=== PATIENT | male | born 1950 | race Caucasian/White ===

== ENCOUNTER 2016-08-29 22:28 | Inpatient (IN) | payer MEDICAID ==
--- NOTE | ~2016-08-29 | A ---
[facility] Nutrition Therapy DATE: 08/31/16 Patient: RONNIE MARROQUIN Physician: HEBER Address: [address] [place] [address] Room/Bed: [address], Zip: [place] [phone] Admit Date: 08/30/16 Date of : [birth year] Height: Weight: 368 167 NUTRITIONAL ASSESSMENT: REASON: CONSULT RE: DIET EDUCATION PT IS 65 Y.O. MALE ADMITTED FOR RESP FAILURE HT: 5'11", WT: 368# (167 KG), BMI: 51.3 RD PROVIDED WRITTEN AND VERBAL CC DIET EDUCATION. RD PROVIDED LIST OF FOODS TO AVOID/LIMIT AND FOODS TO EAT MORE OFTEN. RD EMPHASIZED IMPORTANCE OF FOLLOWING CONSISTENT MEAL SCHEDULE W/BALANCED MEALS WELL LIMIT SUGAR-SWEETENED BEVERAGES. PT STATES HE IS RECENTLY RETIRED, DOES NOT FOLLOW ANY SPECIFIC DIET PLAN. 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 THIS RD ENCOURAGED PT TO CUT BACK ON BREAD AND PROVIDED HEALTHIER ALTERNATIVES. PT VERBALIZED UNDERSTANDING OF THE TOPIC, REPORTED NO DIET QUESTIONS AT THIS TIME. RD TO REMAIN AVAILABLE. RECOMMENDATIONS: 1. ADD HH TO CURRENT DIET ORDER ABOVE TO PROMOTE GRADUAL WEIGHT LOSS TOWARDS HEALTHY BMI (19.0-25.0) OR +/-10%IBW -ENCOURAGE COMPLIANCE OF CURRENT DIET ORDER RD WILL F/U PER PROTOCOL Respectfully, TREY JOHNSTON MS, RD, LD Food and Nutritional Services [facility] cc: client file
--- NOTE | ~2016-08-29 | US84 ---
[id number] [facility] [address] [facility]. [place], [place] [address] [id number] I MR#: [id number] Acc #: [id number] NAME: RONNIE MARROQUIN : 1950 SEX: M STUDY DATE/TIME: 08/30/2016 9:00 UNIT: [facility] ROOM: [facility] STUDY DESCRIPTION: US LE Veins Complete Rafiq Stdy Attending Physician: Keri Cohen M.D. Ordering Physician: Chris Luu M.D. Primary Care Physician: Brit Livingston A.P.R.N. MEDICAL IMAGING REPORT This report is preliminary unless electronic signature is present EXAM Lower extremity venous ultrasound bilateral, 08/30/2016 HISTORY Difficulty breathing, 6 days. History of DVT 10 years ago. TECHNIQUE Venous ultrasound examination of both lower extremities was performed using grayscale, spectral Doppler and color flow Doppler imaging. FINDINGS The examination is negative. There is no evidence of deep venous thrombus from the groin to the lower calf bilaterally. Visualized greater saphenous veins are also patent. IMPRESSION Negative examination. No evidence of bilateral lower extremity deep venous thrombosis. Dictated by... Mathew Green M.D. THIS IS AN ELECTRONICALLY VERIFIED REPORT Mathew Green M.D. at 08/31/2016 12:31 PM Deisi TD: 08/30/2016 11:56 JOB #: [id number] MEDICAL IMAGING REPORT COPY
--- NOTE | ~2016-08-29 | TOC ---
Unit #: [id number] #: [id number] Patient: RONNIE FLYNN [id number] [address] [place], [place] [address] [id number] I MR#: [id number] NAME: RONNIE FLYNN. ROOM: 577 Age: 65 Sex: M Admission Date: 08/30/2016 : 1950 Attending Physician: Keri Cohen M.D. Primary Care Physician: Brit Livingston A.P.R.N. TRANSFER OF CARE SUMMARY PRINCIPAL DIAGNOSES 1. Submassive saddle pulmonary embolism, status post EKOS. 2. Acute hypoxic respiratory failure secondary to PE. 3. Acute core pulmonale secondary to PE. 4. Severe pulmonary hypertension with right ventricular systolic pressure of 70 mmHg. 5. Right upper lobe pulmonary infarct secondary to PE. 6. Acute kidney injury, likely prerenal, now resolved. 7. Hypercoagulable state with history of recurrent DVT and PE, requiring lifelong anticoagulation. 8. Diabetes mellitus type 2, noninsulin requiring and mildly uncontrolled with hemoglobin A1c of 7.2. 9. Hypertension. 10. Obstructive sleep apnea. Compliant with CPAP. 11. Morbid obesity. 12. History of aortic valve replacement with porcine valve. 13. Hyperlipidemia. 14. Hypertriglyceridemia. CONSULTANTS Dr. Moss, pulmonology. Dr. Jimenes, cardiology. PROCEDURES PERFORMED 1. EKOS directed TPA therapy to right and left pulmonary arteries. This occurred without complication. 2. Two-dimensional echocardiogram on 08/30/2016 with ejection fraction of 40%-45%. Mildly enlarged right atrial size. Moderately dilated right ventricle. There is a bioprosthetic aortic valve noted. Moderate tricuspid regurgitation. Right ventricular systolic pressure of 70 mmHg. Mildly dilated aortic root. DIAGNOSTIC DATA IMAGING: CT angiogram of the chest on 08/30/2016 with extensive bilateral pulmonary embolus with near occlusion of the right main pulmonary artery and near occlusion of multiple other small peripheral pulmonary arteries in the right upper, middle and lower lobes. Near occlusion of the pulmonary arterial branches of the left lower lobe with extensive thrombus into the left upper lobe. Dilatation of the right ventricle and right atrium noted. Triangular shaped opacities in the right upper lobe, consistent with pulmonary infarct. Bilateral lower extremity venous Doppler which is negative for DVT. Unit #: [id number] #: [id number] Patient: RONNIE FLYNN CLINICAL HISTORY/HOSPITAL COURSE Mr. Flynn is a very nice 65-year-old male with a prior history of DVT and PE. He presented to the emergency department with increasing shortness of breath and chest pain. Please refer to history and physical for further details. The patient has been off anticoagulation for several months after being told by one of his physicians after his aortic valve replacement that he does not require it. The patient had been off anticoagulation for six or seven months per physician direction. CT angiogram of the chest was done in the emergency department and the patient was found to have failed pulmonary embolism. He was also found to be hypoxic. The patient was admitted to the ICU. Both Dr. Moss and Dr. Jimenes were consulted, given the patient had signs of right ventricular strain on CT angiogram of the chest. The patient emergently underwent a two-dimensional echocardiogram also demonstrating right ventricular strain. The patient subsequently underwent EKOS therapy after initially being given a dose of therapeutic Lovenox and subsequently had been placed on heparin drip. The patient tolerated the procedure well and had significant improvement in his hypoxia and resolution of his chest pain. He has now been transitioned to Xarelto therapy with zero copay as an outpatient. I have discussed with the patient that he has multiple DVTs and PEs in the past and he has a hypercoagulable state and needs to remain on anticoagulation lifelong no matter what. He expresses understanding. He can have outpatient workup for cause of his hypercoagulable state. The patient has been transferred to the floor and essentially has been doing quite well. His chronic conditions including hypertension and diabetes have all been well controlled. Currently we are in the process of titrating his oxygen and I anticipate he will be discharged in one to two days when requirement for oxygen therapy has resolved. Further hospital course will be dictated as an addendum. Dictated by... Keri Cohen M.D. HAILY/trini TD: 09/01/2016 08:13 JOB #: [id number] TRANSFER OF CARE SUMMARY X Keri Cohen MD TRANSFER OF CARE SUMMARY
--- NOTE | ~2016-08-29 | CO ---
Unit #: [id number] #: [id number] Patient: RONNIE MARROQUIN [id number] [facility] [address] [facility]. [place], [place] [address] [id number] I MR#: [id number] NAME: RONNIE MARROQUIN ROOM: [facility] Age: 65 Sex: M Admission Date: 08/30/2016 : 1950 Attending Physician: Keri Cohen M.D. Primary Care Physician: Brit Livingston A.P.R.N. Consultation Date: 08/30/2016 CONSULTATION REPORT HISTORY OF PRESENT ILLNESS The patient is a 65-year-old male who presented to [facility] ED on 08/29/2016 at 9:00 p.m. with complaints of sudden onset of shortness of breath with exertion. He has a history of a recurrent DVTs and PEs, obstructive sleep apnea, diabetes, hypertension. The patient was previously on chronic anticoagulation. He underwent a tissue aortic valve in 07/2015 and stopped taking the anticoagulation six months after that surgery. Apparently patient had been in his normal state of health up until approximately five days ago when he experienced an episode of shortness of breath, which then resolved; however, he then began to have increasing shortness of breath since then but more so over the past couple of days. He went to an immediate care center and there they checked his oxygen level, which was 88% and he was sent to the ED for further evaluation. The patient had a stat CTA that was performed showing (1) pulmonary embolus and some probable heart strain, as well as a right upper lobe pulmonary infarct. We were asked to see the patient for further evaluation and management of the PE with EKOS procedure. The patient was evaluated by Dr. Jimenes and was taken for the EKOS procedure today on 08/30/2016. 2D echo was obtained that showed it was a technically extremely limited study that showed an EF of 40% to 45%, moderately dilated right ventricle, bioprosthetic aortic valve with a peak gradient of 29 a mean gradient of 13, moderate TR and RVSP of 70 and a small pericardial effusion versus fat tissue. As well as a mild dilated aortic root. PAST MEDICAL HISTORY 1. Obesity. 2. High blood pressure. 3. Status post tissue aortic valve on 07/21/2015. 4. History of DVT and PE in the recurrence and a history of chronic anticoagulation. 5. Bacterial meningitis in 1998. 6. Diabetes with proteinuria. 7. Obstructive sleep apnea on CPAP. 8. Hyperlipidemia. 9. Hypertriglyceridemia. 10. Recurrent episodes of pancreatitis. 11. Hypertension. PAST SURGICAL HISTORY 1. Surgical history includes left knee surgery. 2. Septoplasty. 3. Bilateral shoulder surgery. Unit #: [id number] #: [id number] Patient: RONNIE MARROQUIN 4. Colonoscopy in 2012 that showed two small polyps, which were removed, along with rectal veins and internal hemorrhoids. ALLERGIES None. HOME MEDICATIONS 1. Cipro 250 mg p.o. twice a day. 2. Amitriptyline 25 mg p.o. b.i.d. 3. Aspirin 81 mg p.o. daily. 4. Lipitor 40 mg p.o. at bedtime. 5. Sarafem 25 mg p.o. daily. 6. Lasix 40 mg p.o. daily. 7. Glimepiride 4 mg p.o. twice a day. 8. Potassium 20 mEq p.o. daily. 9. Fenofibrate 145 mg p.o. daily. 10. Zestril 40 mg p.o. daily. 11. Metformin 1,000 mg p.o. twice day. 12. Metoprolol tartrate 100 mg p.o. twice day. 13. Clonidine 0.1 mg p.o. twice a day. 14. Amlodipine 2 mg p.o. daily. 15. Lantus 30 units subcu at bedtime. REVIEW OF SYSTEMS See HPI. PHYSICAL EXAMINATION GENERAL: This is a 65-year-old male who is alert and oriented x3 in no apparent distress. VITAL SIGNS: Blood pressure 149/91, temp 97.8, pulse 103, respiration 18. HEENT: Pupils equal, round, reactive. Oral mucosa is moist. NECK: No JVD. No thyromegaly. No lymphadenopathy. No carotid bruits. HEART: Regular rhythm with PACs, normal heart sounds. No rubs. No clicks. No murmurs. LUNGS: Clear. ABDOMEN: Soft, bowel sounds positive, nontender, and nondistended. EXTREMITIES: No swelling. DIAGNOSTIC STUDIES CARDIOLOGY STUDIES: EKG showed normal sinus rhythm with right axis and deep S-waves in V4 through V6. LABORATORY STUDIES: Troponin of 0.11. White count 14.1, hemoglobin 15.6, hematocrit 45.8, platelets 261. Sodium 141, potassium 3.6, chloride 103, CO2 26, glucose 141, BUN 12, creatinine 1.2. INR 1.1. UA with 2+ protein. IMAGING STUDIES: CT of the chest showed extensive bilateral pulmonary embolus with near occlusion of the right main pulmonary artery with near occlusion of multiple other more peripheral pulmonary arteries in the right upper, middle and lower lobes. Near occlusion of pulmonary arterial branches of the left lower lobe with extension of thrombus into the left upper lobe pulmonary artery as well. Triangular shaped opacity in the right upper lobe seen more central in location, could represent subsegmental atelectasis but early pulmonary infarct cannot be excluded. Chest x-ray shows prior median sternotomy but no active pulmonary disease, bilateral lower extremity ultrasounds shows negative for DVT. Unit #: [id number] #: [id number] Patient: RONNIE MARROQUIN IMPRESSION 1. Pulmonary embolus. 2. Obesity. 3. High blood pressure. 4. History of deep venous thrombosis and pulmonary embolus with recurrence. 5. History of tissue valve repair in 07/2015. PLAN A 2D echo was obtained stat and results are above. Patient went for EKOS today. Is going for EKOS for treatment of the PE. Dr. Jimenes to perform EKOS procedure. Further recommendations pending current workup. Dictated by... Anya Hernandez APRN for Lily Rodriguez TD: 08/31/2016 10:37 JOB #: [id number] CONSULTATION REPORT X X CONSULTATION REPORT
--- NOTE | ~2016-08-29 | CR72 ---
[facility] A Service of [facility] & [facility] RADIOLOGY TEXT RESULTS PATIENT: RONNIE MARROQUIN LOCATION: [address] : [birth year] UNIT #: [id number] AGE: [address]: Keri Cohen MD SEX: M ORDER DR: [id number] [facility] [address] [facility]. [place], [place] [address] [id number] I MR#: [id number] Acc #: [id number] NAME: RONNIE MARROQUIN. : 1950 SEX: M STUDY DATE/TIME: 08/29/2016 22:23 UNIT: [facility] ROOM: 95075 STUDY DESCRIPTION: CR Chest Single View Portable Attending Physician: Irina Lieberman M.D. Ordering Physician: Nicho Mcmillan M.D. Primary Care Physician: Brit Livingston A.P.R.N. MEDICAL IMAGING REPORT This report is preliminary unless electronic signature is present EXAM Portable chest 08/29/2016 HISTORY Shortness of breath for 5 days. Benign essential hypertension, congestive heart failure and diabetes. Smoking history. FINDINGS The heart is top normal in size status post median sternotomy. The lungs are clear. There are no pleural effusions. IMPRESSION Prior median sternotomy. No active pulmonary disease. Dictated by... Russell Sharma M.D. THIS IS AN ELECTRONICALLY VERIFIED REPORT Russell Sharma M.D. at 08/30/2016 10:57 AM CHRISTINA/kailee TD: 08/30/2016 07:19 JOB #: [id number] MEDICAL IMAGING REPORT COPY
--- NOTE | ~2016-08-29 | CT16 ---
[facility] A Service of [facility] & [facility] RADIOLOGY TEXT RESULTS PATIENT: RONNIE MARROQUIN LOCATION: [facility] 577-01 : [birth year] UNIT #: [id number] AGE: [address]: Keri Cohen MD SEX: M ORDER DR: [id number] [facility] [address] [facility]. [place], [place] [address] [id number] I MR#: [id number] Acc #: [id number] NAME: RONNIE MARROQUIN. : 1950 SEX: M STUDY DATE/TIME: 08/30/2016 0:10 UNIT: [facility] ROOM: 70617 STUDY DESCRIPTION: CT Angio Chest for PE Attending Physician: Keri Cohen M.D. Ordering Physician: Nicho Mcmillan M.D. Primary Care Physician: Rey RajanRAlejandra MEDICAL IMAGING REPORT This report is preliminary unless electronic signature is present EXAM CT angiography of the chest with IV contrast COMPARISON April 22, 2007. INDICATION 65-year-old male with sudden onset of dyspnea with exertion over the last 5 days. History of pulmonary embolus and prior DVT. TECHNIQUE This CT examination was performed with one or more of the following radiation dose reduction techniques: automatic exposure control, adjustment of mA and/or kV according to patient size, and iterative reconstruction. FINDINGS Axial CT imaging of the chest was performed after IV administration of 80 mL Isovue 370. This was performed during pulmonary arterial phase of postcontrast images. Coronal MIPs and sagittal reformats were constructed. Mild bilateral gynecomastia. Diffuse thoracic spondylosis. Prior sternotomy. 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 Aortic valve prosthesis is noted. There is normal heart size. The right atrium and ventricle are dilated and the main pulmonary artery is normal in caliber. There is bilateral pulmonary embolus with emboli seen in the left upper lobe pulmonary artery as well as extending into the left lower lobe pulmonary artery and multiple branches of the left lower lobe pulmonary artery and of the left upper lobe pulmonary arteries. There is near occlusion of branch vessels in the left lower lobe. No evidence of pulmonary infarct at this time. There is a very large clot burden within the distal right main pulmonary artery extending into the right upper lobe pulmonary arteries where there is near occlusion. The right middle lobe STS. [facility] A Service of [facility] RADIOLOGY TEXT RESULTS PATIENT: RONNIE MARROQUIN LOCATION: [facility] 577-01 : [birth year] UNIT #: [id number] AGE: [address]: Keri Cohen MD SEX: M ORDER DR: pulmonary artery is nearly occluded and there is near occlusion of multiple segmental branches of the right lower lobe pulmonary artery. There is minimal focal opacity in the right upper lobe abutting the major and minor fissures, which could conceivably represent early infarct or possibly atelectasis. This measures up to 3.3 cm. Airways are widely patent. No pneumothorax or pleural effusion. No acute findings in the imaged upper abdomen. IMPRESSION 1. Extensive bilateral pulmonary embolus with near occlusion of the right main pulmonary artery with near occlusion of multiple other more peripheral pulmonary arteries in the right upper, middle and lower lobes. Similarly, there is near occlusion of pulmonary arterial branches in the left lower lobe with extension of thrombus into the left upper lobe pulmonary artery as well. 2. Dilatation of the right ventricle and right atrium. Findings suggestive of right-sided heart strain. 3. Triangular-shaped opacity in the right upper lobe seen more central in location than expected for pulmonary infarct. This is pleural-based however, abutting the right major and minor fissures. This could represent subsegmental atelectasis but early pulmonary infarct cannot be excluded. 4. Prior aortic valve replacement. 5. Not mentioned specifically in the body of the report, there is a small hiatal hernia. 6. A courtesy call was placed to the ER physician caring for this patient at the time of this dictation. Dr. Mcmillan was notified of findings of extensive PE. Dictated by... Westley Mccloud M.D. THIS IS AN ELECTRONICALLY VERIFIED REPORT Westley Mccloud M.D. at 09/05/2016 8:07 AM TRENT/kailee TD: 08/30/2016 08:37 JOB #: [id number] MEDICAL IMAGING REPORT COPY
--- NOTE | ~2016-08-29 | BMI ---
[facility] Nutrition Therapy DATE: 08/31/16 Patient: RONNIE MARROQUIN Physician: HEBER Address: [address] [place] [address] Room/Bed: [address], Zip: [place] [address] Admit Date: 08/30/16 Date of : [birth year] Height: Weight: 368 167 HIGH BMI NOTE: DX: 65 Y.O. MALE ADMITTED FOR RESP FAILURE ANTHROPOMETRICS: 5'11", WT: 368# (167 KG), BMI: 51.3 DIET: CC INTERVENTION: 1. CC DIET RECOMMENDATIONS: 1. RECOMMEND TO ADD HH TO CURRENT DIET ORDER ABOVE TO PROMOTE GRADUAL WEIGHT LOSS TOWARDS HEALTHY BMI (19.0-25.0) OR +/-10%IBW RD WILL F/U PER PROTOCOL Respectfully, TREY JOHNSTON MS, RD, LD Food and Nutritional Services [facility] cc: client file
--- NOTE | ~2016-08-29 | DS ---
Unit #: [id number] #: [id number] Patient: HERNANDEZ MARROQUIN [id number] [address] [place], [place] [address] [id number] I MR#: [id number] NAME: HERNANDEZ MARROQUIN. ROOM: 577 Age: 65 Sex: M Admission Date: 08/30/2016 : 1950 Discharge Date: 09/02/2016 Attending Physician: Keri Cohen M.D. Primary Care Physician: Brit Livingston A.P.R.N. DISCHARGE SUMMARY ADDENDUM This is an addendum to the Transfer of Care Summary dictated by Dr. Cohen on September 01, 2016. Primary diagnoses and hospital course remain unchanged. ADDITIONAL HOSPITAL COURSE Patient was monitored an additional 24 hours and had a there minute walk on room air for which his oxygen saturations remained above 90%. His Xarelto had been delivered to his room the day prior to discharge and so he has his prescription in hand for continued anticoagulation. DISCHARGE DISPOSITION To home. DISCHARGE STATUS Stable. FOLLOWUP Follow up is with Dr. Jimenes with cardiology in six to weight weeks. Follow up with his PCP in two to four weeks. Follow up with Dr. Moss and Dr. Herrera with pulmonology in two to four weeks. DISCHARGE DIET Unrestricted. DISCHARGE ACTIVITY Unrestricted. DISCHARGE MEDICATIONS 1. Xarelto 15 mg p.o. b.i.d. for 19 days and then 20 mg p.o. daily thereafter. 2. Amitriptyline 25 mg p.o. q. h.s. 3. Seraphim 20 mg p.o. daily. 4. Metformin 1000 mg p.o. b.i.d. 5. Amlodipine 10 mg p.o. daily. 6. Metoprolol tartrate 100 mg p.o. b.i.d. 7. Lasix 40 mg p.o. daily. 8. Fenofibrate 145 mg p.o. daily. 9. Lipitor 40 mg p.o. q. h.s. 10. Clonidine 0.1 mg p.o. b.i.d. 11. Lisinopril 40 mg p.o. daily. 12. Apidra insulin - he is to resume his normal home dosing with meals. Unit #: [id number] #: [id number] Patient: HERNANDEZ MARROQUIN 13. Lantus 30 units subcu q. h.s. 14. Aspirin 81 mg p.o. daily. 15. Potassium chloride 20 mEq p.o. daily. 16. Glimepiride 4 mg p.o. b.i.d. Dictated by... Lily Lee/renate TD: 09/05/2016 12:21 JOB #: [id number] DISCHARGE SUMMARY X Hernandez Donovan MD X DISCHARGE SUMMARY
--- NOTE | ~2016-08-29 | EKG ---
PATIENT: ORNNIE MARROQUIN UNIT #: [id number] Ventricular Rate: 88 BPM Atrial Rate: 88 BPM P-R Interval: 168 ms QRS Duration: 104 ms Q-T Interval: 406 ms QTC Calculation(Bezet): 491 ms P Warner: 34 degrees Calculated R Warner: -16 degrees Calculated T Warner: 24 degrees Diagnosis Line: Normal sinus rhythm with sinus arrhythmia Diagnosis Line: T wave abnormality, consider anterior ischemia Diagnosis Line: Cannot rule out Inferior infarct , age Diagnosis Line: undetermined Diagnosis Line: Abnormal ECG Diagnosis Line: When compared with ECG of 29-AUG-2016 22:42, Diagnosis Line: Minimal criteria for Inferior infarct are now Diagnosis Line: Present Diagnosis Line: Inverted T waves have replaced nonspecific T wave Diagnosis Line: abnormality in Anterior leads Diagnosis Line: Confirmed by BORIS WAGNER MD ([id number]) on 09/02/2016 Diagnosis Line: 5:50:35 PM INTERPRETING MD: BERNARD BAIG
--- NOTE | ~2016-08-29 | EKG ---
PATIENT: RONNIE MARROQUIN UNIT #: [id number] Ventricular Rate: 102 BPM Atrial Rate: 102 BPM P-R Interval: 182 ms QRS Duration: 108 ms Q-T Interval: 370 ms QTC Calculation(Bezet): 482 ms P [place]: 6 degrees Calculated R [place]: 94 degrees Calculated T [place]: 0 degrees Diagnosis Line: Sinus tachycardia Diagnosis Line: Rightward axis Diagnosis Line: Pulmonary disease pattern Diagnosis Line: Borderline ECG Diagnosis Line: When compared with ECG of 29-AUG-2016 22:41, Diagnosis Line: (unconfirmed) Diagnosis Line: Right axis deviation and deep s waves in V4-V6 are Diagnosis Line: new Diagnosis Line: Confirmed by BERNARD BAIG, BORIS ([id number]) on 08/30/2016 Diagnosis Line: 7:36:12 PM INTERPRETING MD: BERNARD BAIG
--- NOTE | ~2016-08-29 | CO ---
Unit #: [id number] #: [id number] Patient: RONNIE MARROQUIN [id number] [address] [address] [id number] I MR#: [id number] NAME: RONNIE MARROQIUN. ROOM: [facility] Age: 65 Sex: M Admission Date: 08/30/2016 : 1950 Attending Physician: Keri Cohen M.D. Primary Care Physician: Brit Livingston Consultation Date: 08/30/2016 CONSULTATION REPORT REASON FOR CONSULT ICU management. HISTORY OF PRESENT ILLNESS This is a very pleasant 65-year-old male with past medical history significant for significant sleep apnea, multiple PE/DVTs who presented to the emergency room with shortness of breath for the last four or five days, much worse over the last two days. The patient stated he was diagnosed with PE/DVT 10 years ago and he was treated for almost a year with Coumadin and then he was taken off. Then, again, he had another DVT many years after and he was treated with Coumadin since then until he had his valve replacement and then he was told by his kitchenwhere maker that he does not need Coumadin anymore. 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 No family history of clotting disorders. No recent trip or travel. No recent trauma or bedridden condition. PAST MEDICAL HISTORY 1. Multiple DVT/PEs. 2. Bacterial meningitis. 3. Diabetes. 4. Obstructive sleep apnea. 5. Hyperlipidemia. 6. Pancreatitis. 7. Morbid obesity. PAST SURGICAL HISTORY 1. Left knee surgery. 2. Septoplasty. 3. Bilateral shoulder surgery. 4. Colonoscopy. 5. Aortic valve replacement. HOME MEDICATIONS 1. Metformin. 2. Metoprolol. 3. Clonidine. 4. Norvasc. 5. Lantus. 6. Cipro. 7. Elavil. 8. Aspirin. Unit #: [id number] #: [id number] Patient: RONNIE MARROQUIN 9. Lipitor. 10. Prozac. 11. Lasix. 12. Amaryl. 13. Potassium. 14. Fenofibrate. 15. Lisinopril. ALLERGIES No known drug allergies. SOCIAL HISTORY The patient lives with his . He is a retired truck dock material mover. He stopped smoking in 1991. Does not drink alcohol. No street drug abuse. FAMILY HISTORY Negative for blood clots. Positive for diabetes and hypertension. REVIEW OF SYSTEMS Twelve point review of systems was obtained and negative except for what was mentioned in the HPI. PHYSICAL EXAMINATION VITAL SIGNS: Blood pressure 152/71, respiratory rate 16, O2 saturation 94% on 2 liter nasal cannula. GENERAL: The patient is no in acute distress. HEENT: Atraumatic, normocephalic. PERRLA. EOMI. NECK: Supple. No JVD. No lymphadenopathy. LUNGS: Decreased breath sounds bilaterally. HEART: S1, S2. Positive murmur. ABDOMEN: Soft, nontender. Bowel sounds are positive. No hepatosplenomegaly. EXTREMITIES: No edema or cyanosis. SKIN: No rashes. NEUROLOGIC: Awake, alert, and oriented x3. No focal motor/sensory deficit. DIAGNOSTIC STUDIES LABORATORY: Creatinine 1.2, glucose 141, sodium 141. White blood cell count 12.3. IMAGING: CT chest showing submassive PE. ASSESSMENT 1. Acute hypoxic respiratory failure. 2. Submassive PE. 3. Recurrent history of DVT/PEs. 4. Morbid obesity. 5. Obstructive sleep apnea. 6. Hypertension. 7. Diabetes. PLAN 1. Patient is critical. He needs to be watched in the ICU very closely over the next one to two days. 2. Heparin drip. The patient will undergo EKOS procedure. 3. Patient needs anticoagulation lifelong. Likely will check him for Xarelto versus Eliquis on discharge. Unit #: [id number] #: [id number] Patient: RONNIE MARROQUIN 4. Will continue CPAP at night. 5. Bedrest for today but physical therapy to assess tomorrow. Dictated by... Lily Abreu TD: 08/30/2016 15:26 JOB #: [id number] CONSULTATION REPORT X JACIEL MIKE MD CONSULTATION REPORT
--- NOTE | ~2016-08-29 | HP ---
Unit #: [id number] #: [id number] Patient: RONNIE MARROQUIN [id number] [address] [place], [place] [address] [id number] I MR#: [id number] NAME: RONNIE MARROQUIN. ROOM: [id number] Age: 65 Sex: M Admission Date: 08/30/2016 : 1950 Attending Physician: Irina Lieberman M.D. Primary Care Physician: Brit Livingston A.P.R.N. HISTORY AND PHYSICAL CHIEF COMPLAINT Saddle pulmonary embolus with right heart strain. HISTORY This 65-year-old male with history of recurrent DVTs and PEs, obstructive sleep apnea, AODM, hypertension, is admitted for saddle pulmonary embolus. The patient was previously chronically anticoagulated. Underwent tissue aortic valve replacement 07/2015. After six months, he was told that he would not require anticoagulation for cardiac purposes. Therefore, has been off anticoagulation for the past six to seven months. Was well until five days ago when he experienced an episode of shortness of breath which resolved. However, began to experience increasing shortness of breath since then, particularly over the past two days. He went to an [facility] last evening and was noted to have an O2 saturation of about 88%, and sent to this emergency department for further evaluation. A stat CTA was performed showing saddle pulmonary embolus with likely heart strain and likely right upper lobe pulmonary infarct. The patient was given a therapeutic dose of Lovenox. He was also noted to have an indeterminate troponin. A call was also made to pulmonary, as patient will likely need an EKOS procedure. Currently, he is hemodynamically stable, with an O2 saturation of 94% on 4 L of oxygen, mildly tachycardic. Denies chest patient with the above. PAST MEDICAL HISTORY 1. 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 2. History of DVTs and PEs in the past with recurrence. 3. Bacterial meningitis 1998. 4. AODM with proteinuria. 5. Obstructive sleep apnea, on CPAP. 6. Hyperlipidemia and hypertriglyceridemia. 7. Recurrent episodes of pancreatitis. 8. Left knee surgery. 9. Septoplasty. 10. Bilateral shoulder surgery. 11. Colonoscopy 2012 revealing two small polyps which were removed along with rectal veins and internal hemorrhoids. 12. Hypertension. ALLERGIES No known drug allergies. HOME MEDICATIONS 1. Metformin 1000 mg b.i.d. Unit #: [id number] #: [id number] Patient: RONNIE MARROQUIN 2. Metoprolol 100 mg b.i.d. 3. Clonidine 0.1 mg b.i.d. 4. Norvasc 10 mg daily. 5. Lantus 30 units subcu q. h.s. 6. Cipro started five days ago, 250 mg b.i.d. 7. Elavil 25 mg q. h.s. 8. Aspirin 81 mg daily. 9. Lipitor 40 mg q. h.s. 10. Prozac 20 mg daily. 11. Lasix 40 mg daily. 12. Amaryl 4 mg b.i.d. 13. Potassium 20 mEq daily. 14. Fenofibrate 145 mg daily. 15. Lisinopril 40 mg daily. FAMILY HISTORY Negative for blood clots. Positive for diabetes mellitus and hypertension. SOCIAL HISTORY The patient lives with his . He stopped smoking in 1991, does not drink alcohol. REVIEW OF SYSTEMS Notable for increasing shortness of breath, valve replacement, meningitis, AODM, blood clots, JAIME, hyperlipidemia, pancreatitis, above mentioned surgeries, hypertension. All other systems were reviewed and are otherwise negative. PHYSICAL EXAMINATION GENERAL APPEARANCE: Pleasant, morbidly obese 65-year-old male, currently in no acute distress. VITAL SIGNS: Temperature 98.7, pulse 87, respirations 18, blood pressure 144/70. O2 saturation was 87% on room air, and currently is 94% on 4 L of oxygen. Weight is 166 kilograms. HEENT: Eyes PERRLA. Extraocular muscles are intact. Pharynx is benign. NECK: Supple without adenopathy or thyromegaly. CHEST: Clear. CARDIAC: Slightly tachy S1 and S2 without murmur. ABDOMEN: Bowel sounds are present. No hepatosplenomegaly, tenderness or masses. EXTREMITIES: With mild edema bilaterally. NEUROLOGIC EXAM: The patient is awake, alert, oriented. Cranial nerves are intact. He has equal strength throughout. DIAGNOSTIC STUDIES LABORATORY: Admission labs - hematocrit is 45.8, white blood count is 14.1, normal platelet count. Coags are normal. D-dimer 2400. SMA-12 - glucose is 154, CO2 is 21, protein is 8.5. Troponin 0.11. IMAGING: Chest x-ray - no acute disease. CT scan shows extensive bilateral PEs with likely right upper lobe Unit #: [id number] #: [id number] Patient: RONNIE MARROQUIN pulmonary infarct and likely right heart strain. CARDIOVASCULAR: EKG - sinus tachycardia, rate 102 with right axis deviation. ASSESSMENT 1. Saddle pulmonary embolus with right heart strain, likely right upper lobe pulmonary infarct and acute hypoxic respiratory failure. 2. History of recurrent DVTs and PEs, off Coumadin for the past six months. 3. Status post tissue aortic valve replacement last year. 4. Adult onset diabetes mellitus. 5. Hypertension. 6. Obstructive sleep apnea, on CPAP. 7. Indeterminate troponin, likely secondary to #1. PLANS 1. The patient received one therapeutic dose of Lovenox in the ER. Will order a heparin drip after 12 hours following the above mentioned dose of Lovenox. 2. Sliding scale insulin. Hold metformin and oral hypoglycemics while NPO. 3. Use auto-PAP and supplemental oxygen. 4. Dopplers of the legs. 5. Pulmonary and cardiology consultation to see for possible EKOS procedure. 6. Repeat labs in the morning. 7. Obtain urinalysis. 8. Patient will need lifelong anticoagulation. Dictated by Lily Bland/renate TD: 08/30/2016 05:33 JOB #: [id number] HISTORY AND PHYSICAL X Irina Lieberman MD X HISTORY AND PHYSICAL
[~2016-08-29 22:28] MED LIST: AMITRIPTYLINE H25 MG PO; AMITRYPTYLINE PO; ARIXTRA10 MG/0.8 SQ; ASPIRIN81 MG PO; BENICAR PO; BYDUREON2 MG SQ; CIPRO250 M1 PO; COMBIVENT INH14.7 GM INH; COUMADIN PO; DIABETIC TUSSI400 MG PO; FENOFIBRATE145 M1 PO; FISH OIL 1,0001 CAP PO; FISH OIL 10001000 MG PO; FUROSEMIDE40 MG PO; GLIMEPIRIDE2 MG PO; GLUCOPHAGE XR500 MG PO; GLUCOPHAGE500 MG PO; GLUCOTROL XL PO; GUAIFENESIN400 MG PO; JANUVIA PO; KCL PO; KEFLEX500 MG PO; LASIX PO; LIPITOR PO; LIPITOR40 MG PO; LIPOFEN150 MG PO; LOPID600 MG PO; LOPRESSOR PO; LORTAB 10-5001 EACH PO; LOVAZA PO; METFORMIN HCL500 M1 PO; METFORMIN PO; PERCOCET 51 UDTAB 5/ PO; PREVACID30 MG/BLIS PO; PRILOSEC20 MG PO; PRINIVIL40 MG PO; PROZAC PO; SARAFEM20 MG PO; SIMVASTATIN40 MG PO; TRICOR PO; VIT C PO; ZANTAC PO; ZESTRIL40 MG PO
[2016-08-29] MEDS ORDERED: METFORMIN HCL1000 M1 PO (22:29)
[2016-08-29] MEDS ORDERED: METOPROLOL TAR100 MG PO (22:30)
[2016-08-29] MEDS ORDERED: CLONIDINE HCL0.1 MG PO (22:31)
[2016-08-29] MEDS ORDERED: AMLODIPINE BESY10 MG PO (22:31)
[2016-08-29] MEDS ORDERED: LANTUS100 U/ML SUBQ (22:33)
[2016-08-29] MEDS ORDERED: APIDRA (NF100 UNITS/ (22:34)
[2016-08-29 22:49] LABS: POC - CKMB 1.8 ng/mL (0.0-7.9); POC - TROPONIN 0.11 ng/mL (<=0.05)
[2016-08-29 22:50] LABS: BASOPHIL# 0.1 X10e3 (0-0.3); BASOPHIL% 0.5 % (0-2.5); DIFF IND NO; EOSINOPHIL# 0.1 X10e3 (0-0.7); EOSINOPHIL% 0.4 % (0.0-7.0); HEMATOCRIT 45.8 % (38.0-50.0); HEMOGLOBIN 15.6 gm/dL (13.0-16.0); LYMPHOCYTE# 2.2 X10e3 (1.0-3.5); LYMPHOCYTE% 15.3 % (17.0-45.0); MEAN CELL VOLUME 88.2 FL (83-96); MEAN CORPUSCULAR HEMOGLOBIN 30.1 PG (28-34); MEAN CORPUSCULAR HGB CONC 34.1 g/dL (30-36); MEAN PLATELET VOLUME 8.1 FL (6.5-11.5); MONOCYTE# 0.9 X10e3 (0-1.0); MONOCYTE% 6.1 % (3.0-12.0); NEUTROPHIL# 10.9 X10e3 (1.5-7.1); NEUTROPHIL% 77.7 % (40-75); PLATELET COUNT 261 X10e3 (140-420); RED BLOOD COUNT 5.19 X10e (3.90-5.60); RED CELL DISTRIBUTION WIDTH 13.6 % (11.0-15.5); WHITE BLOOD COUNT 14.1 X10e3 (4.0-10.5)
[2016-08-29 23:06] LABS: INR 1.1; PARTIAL THROMBOPLASTIN TIME 24.5 SECONDS (23.5-31.3); PROTHROMBIN TIME (PATIENT) 11.3 SECONDS (9.6-11.5)
[2016-08-29 23:18] LABS: ALBUMIN SERUM 4.4 g/dL (3.5-5.0); ALKALINE PHOSPHATASE 52 U/L (32-92); ALT (SGPT) 18 U/L (10-40); AST (SGOT) 23 U/L (10-42); BILIRUBIN, DIRECT 0.2 mg/dL (0.0-0.2); BILIRUBIN,INDIRECT 0.6 mg/dL (0.0-0.9); BILIRUBIN,TOTAL 0.8 mg/dL (0.2-2.0); BLOOD UREA NITROGEN 14 mg/dL (9-23); BUN/CREATININE RATIO 11.66; CALCIUM SERUM 9.1 mg/dL (8.4-10.2); CARBON DIOXIDE 21 mmol/L (22-31); CHLORIDE 106 mmol/L (100-111); CREATININE SERUM 1.2 mg/dL (0.6-1.4); GLOM FILT RATE Estimated ABOVE60 mL/min (>60); GLUCOSE FASTING 154 mg/dL (70-110); PROTEIN TOTAL SERUM 8.5 g/dL (6.0-8.3); SODIUM 139 mmol/L (135-145)
[2016-08-30 03:38] LABS: URINE SOURCE CLEAN CATCH
[2016-08-30 03:43] LABS: URINE APPEARANCE CLEAR; URINE BILIRUBIN NEG (NEG); URINE BLOOD NEG (NEG); URINE COLOR YELLOW; URINE GLUCOSE NEG (NEG); URINE KETONE NEG (NEG); URINE LEUKOCYTE ESTERASE NEG (NEG); URINE NITRATE NEG (NEG); URINE PH 5.5 (5-8); URINE PROTEIN 2+ (NEG); URINE SPECIFIC GRAVITY 1.056 (1.003-1.035); URINE UROBILINOGEN 0.2 MG/DL (NEG)
[2016-08-30 03:46] LABS: U HYALINE CASTS AUWI 0-2 /[LPF]; URBCS1 AUWI 0-2 /[HPF] (0-2); URINE BACTERIA AUWI NEG (NEGATIVE); URINE SQUAMOUS EPITHELIAL CELL NONE SEEN /[HPF]; UWBCS1 AUWI 0-2 (0-5)
[2016-08-30 07:55] LABS: BASOPHIL# 0.1 X10e3 (0-0.3); BASOPHIL% 0.7 % (0-2.5); EOSINOPHIL# 0.1 X10e3 (0-0.7); EOSINOPHIL% 0.6 % (0.0-7.0); HEMATOCRIT 45.6 % (38.0-50.0); HEMOGLOBIN 15.3 gm/dL (13.0-16.0); LYMPHOCYTE# 3.3 X10e3 (1.0-3.5); LYMPHOCYTE% 26.9 % (17.0-45.0); MEAN CORPUSCULAR HEMOGLOBIN 29.8 PG (28-34); MEAN CORPUSCULAR HGB CONC 33.5 g/dL (30-36); MEAN PLATELET VOLUME 7.5 FL (6.5-11.5); MONOCYTE# 0.9 X10e3 (0-1.0); MONOCYTE% 7.5 % (3.0-12.0); NEUTROPHIL# 7.9 X10e3 (1.5-7.1); NEUTROPHIL% 64.3 % (40-75); PLATELET COUNT 254 X10e3 (140-420); RED BLOOD COUNT 5.12 X10e (3.90-5.60); RED CELL DISTRIBUTION WIDTH 13.9 % (11.0-15.5); WHITE BLOOD COUNT 12.3 X10e3 (4.0-10.5)
[2016-08-30 07:57] LABS: DIFF IND NO
[2016-08-30 08:12] LABS: INR 1.1; PARTIAL THROMBOPLASTIN TIME 26.7 SECONDS (23.5-31.3); PROTHROMBIN TIME (PATIENT) 11.7 SECONDS (9.6-11.5)
[2016-08-30 08:22] LABS: BLOOD UREA NITROGEN 12 mg/dL (9-23); CALCIUM SERUM 9.2 mg/dL (8.4-10.2); CARBON DIOXIDE 26 mmol/L (22-31); CHLORIDE 103 mmol/L (100-111); CREATININE SERUM 1.2 mg/dL (0.6-1.4); GLOM FILT RATE Estimated ABOVE60 mL/min (>60); GLUCOSE FASTING 141 mg/dL (70-110); POTASSIUM 3.6 mmol/L (3.5-5.1); SODIUM 141 mmol/L (135-145)
[2016-08-31 04:43] LABS: BASOPHIL# 0.1 X10e3 (0-0.3); BASOPHIL% 0.6 % (0-2.5); EOSINOPHIL# 0.3 X10e3 (0-0.7); EOSINOPHIL% 2.9 % (0.0-7.0); HEMATOCRIT 44.1 % (38.0-50.0); HEMOGLOBIN 14.5 gm/dL (13.0-16.0); LYMPHOCYTE# 2.9 X10e3 (1.0-3.5); MEAN CELL VOLUME 89.2 FL (83-96); MEAN CORPUSCULAR HEMOGLOBIN 29.4 PG (28-34); MEAN CORPUSCULAR HGB CONC 32.9 g/dL (30-36); MEAN PLATELET VOLUME 8.4 FL (6.5-11.5); MONOCYTE# 0.9 X10e3 (0-1.0); NEUTROPHIL# 6.9 X10e3 (1.5-7.1); NEUTROPHIL% 62.5 % (40-75); PLATELET COUNT 227 X10e3 (140-420); RED BLOOD COUNT 4.95 X10e (3.90-5.60); RED CELL DISTRIBUTION WIDTH 13.6 % (11.0-15.5)
[2016-08-31 05:01] LABS: BLOOD UREA NITROGEN 13 mg/dL (9-23); BUN/CREATININE RATIO 14.44; CALCIUM SERUM 8.6 mg/dL (8.4-10.2); CARBON DIOXIDE 24 mmol/L (22-31); CHLORIDE 108 mmol/L (100-111); CREATININE SERUM 0.9 mg/dL (0.6-1.4); GLOM FILT RATE Estimated ABOVE60 mL/min (>60); GLUCOSE FASTING 121 mg/dL (70-110); SODIUM 141 mmol/L (135-145)
[2016-08-31 05:19] LABS: DIFF IND NO
[2016-09-01 05:36] LABS: BASOPHIL% 0.4 % (0-2.5); EOSINOPHIL# 0.5 X10e3 (0-0.7); EOSINOPHIL% 5.2 % (0.0-7.0); HEMATOCRIT 42.3 % (38.0-50.0); HEMOGLOBIN 14.5 gm/dL (13.0-16.0); LYMPHOCYTE# 2.8 X10e3 (1.0-3.5); LYMPHOCYTE% 30.3 % (17.0-45.0); MEAN CORPUSCULAR HEMOGLOBIN 30.4 PG (28-34); MEAN CORPUSCULAR HGB CONC 34.2 g/dL (30-36); MEAN PLATELET VOLUME 7.9 FL (6.5-11.5); MONOCYTE# 0.8 X10e3 (0-1.0); MONOCYTE% 8.1 % (3.0-12.0); NEUTROPHIL# 5.2 X10e3 (1.5-7.1); PLATELET COUNT 196 X10e3 (140-420); RED BLOOD COUNT 4.76 X10e (3.90-5.60); RED CELL DISTRIBUTION WIDTH 13.8 % (11.0-15.5); WHITE BLOOD COUNT 9.3 X10e3 (4.0-10.5)
[2016-09-01 05:42] LABS: DIFF IND NO
[2016-09-01 05:57] LABS: INR 1.2; PARTIAL THROMBOPLASTIN TIME 26.2 SECONDS (23.5-31.3); PROTHROMBIN TIME (PATIENT) 13.2 SECONDS (9.6-11.5)
[2016-09-01 06:22] LABS: CHOLESTEROL 111 mg/dL (0-200); HDL CHOLESTEROL 36 mg/dL (29-75); LDL CHOLESTEROL 34 mg/dL (-130); LDL/HDL RATIO 1 RATIO (0-4); TRIGLYCERIDES 206 mg/dL (10-160)
[2016-09-02 07:22] LABS: HEMATOCRIT 45.3 % (38.0-50.0); HEMOGLOBIN 15.2 gm/dL (13.0-16.0); MEAN CORPUSCULAR HEMOGLOBIN 29.9 PG (28-34); MEAN CORPUSCULAR HGB CONC 33.6 g/dL (30-36); MEAN PLATELET VOLUME 7.8 FL (6.5-11.5); RED BLOOD COUNT 5.09 X10e (3.90-5.60); RED CELL DISTRIBUTION WIDTH 13.6 % (11.0-15.5); WHITE BLOOD COUNT 8.2 X10e3 (4.0-10.5)
[2016-09-02 08:10] LABS: INR 1.1; PROTHROMBIN TIME (PATIENT) 12.1 SECONDS (9.6-11.5)
[2016-09-02] MEDS ORDERED: XARELTO15 MG PO (11:32)
[2016-09-02] MEDS ORDERED: XARELTO20 MG PO (11:33)
[2017-03-15] MEDS ORDERED: AMITRIPTYLINE H25 MG PO (15:55)
[2017-03-15] MEDS ORDERED: ASPIRIN EC81 M1 PO (15:55)
[2017-03-15] MEDS ORDERED: ATORVASTATIN CA40 MG PO (15:55)
[2017-03-15] MEDS ORDERED: AMLODIPINE BESY10 MG PO (15:55)
[2017-03-15] MEDS ORDERED: CLONIDINE HCL0.1 MG PO (15:56)
[2017-03-15] MEDS ORDERED: FLUOXETINE HCL20 M1 PO (15:57)
[2017-03-15] MEDS ORDERED: LOPID600 MG PO (15:57)
[2017-03-15] MEDS ORDERED: AMARYL PO (15:58)
[2017-03-15] MEDS ORDERED: ZESTRIL40 MG PO (15:58)
[2017-03-15] MEDS ORDERED: METFORMIN PO (15:59)
[2017-03-15] MEDS ORDERED: METOPROLOL PO (16:00)
[2017-03-15] MEDS ORDERED: K-DUR20 ME1 PO (16:01)
[2017-03-15] MEDS ORDERED: [UNRECOGNIZED DRUG - REMARK] SUBQ (16:02)
[2017-03-15] MEDS ORDERED: LANTUS SOL100 UNIT/1 SUBQ (16:02)
[2017-03-15] MEDS ORDERED: COUMADIN5 MG PO (16:02)
== END 2016-09-02 18:27 | disposition home or self-care (01) | DRG 175 ==
LOC: CED 22:28 → CEDOF 08-30 02:25 → CICCU2 08-30 10:31 → C5C 08-31 21:41
PROVIDERS: Emergency Medicine; Internal Medicine; Internal Medicine Cardiovascular Disease
PROC: B246YZZ Ultrasonography of Right and Left Heart using Other Contrast (ICD-10-PCS; principal; 2016-08-30)
PROC: 3E06317 Introduction of Other Thrombolytic into Central Artery, Percutaneous Approach (ICD-10-PCS; 2016-08-30)
PROC: 6A751Z7 Ultrasound Therapy of Other Vessels, Multiple (ICD-10-PCS; 2016-08-30)
DX: I26.02 Saddle embolus of pulmonary artery with acute cor pulmonale (principal); J96.01 Acute respiratory failure with hypoxia; N17.9 Acute kidney failure, unspecified; Z68.43 Body mass index [BMI] 50.0-59.9, adult; I27.2 Other secondary pulmonary hypertension; E11.65 Type 2 diabetes mellitus with hyperglycemia; I10 Essential (primary) hypertension; G47.33 Obstructive sleep apnea (adult) (pediatric); Z86.718 Personal history of other venous thrombosis and embolism; Z86.711 Personal history of pulmonary embolism; Z95.2 Presence of prosthetic heart valve; E78.5 Hyperlipidemia, unspecified; E78.1 Pure hyperglyceridemia; Z79.82 Long term (current) use of aspirin; Z79.4 Long term (current) use of insulin; Z87.891 Personal history of nicotine dependence; E66.01 Morbid (severe) obesity due to excess calories
CPT/HCPCS: 36415; 71010; 71275; 80048; 80061; 80076; 81003; 82553; 82947; 83036; 84484; 85025; 85027; 85379; 85610; 85730; 87086; 93005; 93306; 93970; 94660; 94760; 94761; 96372; 97162; 99285; C1751; C1769; C1887; J1644; J1650; J1815; J2250; J2270; J2997; J3010; Q9967

== ENCOUNTER → 2016-12-11 | Outpatient (CLI) | payer OTHER ==
[~2016-12-11] MED LIST changes: +AMARYL PO; +AMLODIPINE BESY10 MG PO; +APIDRA (NF100 UNITS/; +ASPIRIN EC81 M1 PO; +ATORVASTATIN CA40 MG PO; +CLONIDINE HCL0.1 MG PO; +COUMADIN5 MG PO; +FLUOXETINE HCL20 M1 PO; +K-DUR20 ME1 PO; +LANTUS SOL100 UNIT/1 SUBQ; +LANTUS100 U/ML SUBQ; +METFORMIN HCL1000 M1 PO; +METOPROLOL PO; +METOPROLOL TAR100 MG PO; +XARELTO15 MG PO; +XARELTO20 MG PO; +[UNRECOGNIZED DRUG - REMARK] SUBQ
--- NOTE | ~2016-12-11 | BD1 ---
[facility] A Service of [facility] RADIOLOGY TEXT RESULTS PATIENT: RONNIE MARROQUIN LOCATION: [facility] : [birth year] UNIT #: [id number] AGE: [address]: Dawna Conklin MD SEX: M ORDER DR: [id number] [facility] [address] [place], [place] [address] [id number] O MR#: [id number] Acc #: [id number] NAME: RONNIE MARROQUIN : 1950 SEX: M STUDY DATE/TIME: 12/11/2016 10:29 UNIT: [facility] ROOM: STUDY DESCRIPTION: BD Dexa Bone Dens 1+ Site Attending Physician: Dawna Conklin M.D. Ordering Physician: Dawna Conklin M.D. Primary Care Physician: Dawna Conklin M.D. MEDICAL IMAGING REPORT This report is preliminary unless electronic signature is present EXAM DXA scan 12/11/2016 HISTORY Arthritis and diabetes. Hypertension with blood pressure medication for 15 years. Smoking history for 10 years. Osteoporosis screening. FINDINGS Bone mineral density in the lumbar spine from L1-L4 is 1.538 g/cm2, which is 4.1 standard deviations above the mean when compared to the young adult reference population, which is within the range of normal. This is 4.8 standard deviations above the mean when compared to the age-matched population. Bone mineral density in the left femoral neck was 1.471 g/cm2, which is 2.9 standard deviations above the mean when compared to the young adult reference population, which is within the range of normal. This is 3.4 standard deviations above the mean when compared to the age-matched population. IMPRESSION Bone mineral density in the lumbar spine and left hip within the range of normal. Dictated by... Russell Sharma M.D. THIS IS AN ELECTRONICALLY VERIFIED REPORT Russell Sharma M.D. at 12/12/2016 9:55 AM CHRISTINA/estefany TD: 12/11/2016 13:29 [facility] A Service of [facility] RADIOLOGY TEXT RESULTS PATIENT: RONNIE MARROQUIN LOCATION: [facility] #: [id number] : [birth year] UNIT #: [id number] AGE: [address]: Dawna Conklin MD SEX: M ORDER DR: JOB #: [id number] MEDICAL IMAGING REPORT Page 1 of 1 COPY
== END | disposition home or self-care (01) ==
LOC: CWCC 09:57
DX: Z13.820 Encounter for screening for osteoporosis (principal); Z79.01 Long term (current) use of anticoagulants
CPT/HCPCS: 77080

== ENCOUNTER → 2017-01-09 | Outpatient (CLI) | payer OTHER ==
--- NOTE | ~2017-01-09 | PFT ---
[id number] [facility] [address] [place], [place] [address] [id number] O MR#: [id number] NAME: RONNIE MARROQUIN ROOM: SEX: M STUDY DATE/TIME: 01/10/2017 : 1950 AGE: 66 STUDY DESCRIPTION: Attending Physician: Dawna Conklin M.D. Referring Physician: Dawna Conklin M.D. Primary Care Physician: Dawna Conklin M.D. PULMONARY DIAGNOSTIC REPORT EXAM Pulmonary function test. FINDINGS Spirometry suggests a restrictive defect. There is no significant response to bronchodilators. Flow volume loop is consistent with a restrictive defect. Lung volumes reveal low normal total lung capacity. ERV is mildly reduced, consistent with obesity. Diffusion capacity is mildly reduced. PFTs would suggest an intrinsic restrictive defect, such as pulmonary fibrosis. Clinical correlation is needed. Dictated by... Lily Holman TD: 01/10/2017 09:56 JOB #: [id number] CC: Dawna Conklin M.D. PULMONARY DIAGNOSTIC REPORT Page 1 of 1
== END | disposition home or self-care (01) ==
LOC: CRC 12:26
DX: I27.0 Primary pulmonary hypertension (principal)
CPT/HCPCS: 94060; 94726; 94729

== ENCOUNTER 2017-03-04 16:31 | Emergency (ER) | payer OTHER ==
[~2017-03-04] VITALS: Ht 180.3 cm; Wt 167.8 kg
[~2017-03-04 16:31] MED LIST changes: -AMARYL PO; -ASPIRIN EC81 M1 PO; -ATORVASTATIN CA40 MG PO; -COUMADIN5 MG PO; -FLUOXETINE HCL20 M1 PO; -K-DUR20 ME1 PO; -LANTUS SOL100 UNIT/1 SUBQ; -METOPROLOL PO; -[UNRECOGNIZED DRUG - REMARK] SUBQ
[2017-03-04 17:26] LABS: URINE SOURCE CLEAN CATCH
[2017-03-04 17:31] LABS: URINE APPEARANCE CLEAR; URINE BILIRUBIN NEG (NEG); URINE BLOOD NEG (NEG); URINE COLOR DK YELLOW; URINE GLUCOSE NEG (NEG); URINE KETONE 1+ (NEG); URINE LEUKOCYTE ESTERASE NEG (NEG); URINE NITRATE NEG (NEG); URINE PH 5.5 (5-8); URINE PROTEIN 3+ (NEG)
[2017-03-04 17:33] LABS: URINE BACTERIA AUWI NEG (NEGATIVE); URINE SQUAMOUS EPITHELIAL CELL OCC /[HPF]; UWBCS1 AUWI 0-2 (0-5)
[2017-03-04 17:34] LABS: CULTURE INDICATED? NO
[2017-03-04 17:36] LABS: BASOPHIL% 0.2 % (0-2.5); EOSINOPHIL# 0.1 X10e3 (0-0.7); EOSINOPHIL% 0.5 % (0.0-7.0); HEMATOCRIT 42.1 % (38.0-50.0); HEMOGLOBIN 14.5 gm/dL (13.0-16.0); LYMPHOCYTE# 1.6 X10e3 (1.0-3.5); LYMPHOCYTE% 12.6 % (17.0-45.0); MEAN CELL VOLUME 88.5 FL (83-96); MEAN CORPUSCULAR HEMOGLOBIN 30.4 PG (28-34); MEAN CORPUSCULAR HGB CONC 34.3 g/dL (30-36); MEAN PLATELET VOLUME 7.7 FL (6.5-11.5); MONOCYTE# 1.3 X10e3 (0-1.0); MONOCYTE% 10.4 % (3.0-12.0); NEUTROPHIL# 9.6 X10e3 (1.5-7.1); NEUTROPHIL% 76.3 % (40-75); PLATELET COUNT 228 X10e3 (140-420); RED BLOOD COUNT 4.76 X10e (3.90-5.60); WHITE BLOOD COUNT 12.6 X10e3 (4.0-10.5)
[2017-03-04 17:37] LABS: DIFF IND NO
[2017-03-04 17:58] LABS: ALBUMIN SERUM 3.9 g/dL (3.5-5.0); BILIRUBIN, DIRECT 0.2 mg/dL (0.0-0.2); BILIRUBIN,INDIRECT 0.9 mg/dL (0.0-0.9); BILIRUBIN,TOTAL 1.1 mg/dL (0.2-2.0); BUN/CREATININE RATIO 13.75; CALCIUM SERUM 8.8 mg/dL (8.4-10.2); CREATININE SERUM 0.8 mg/dL (0.6-1.4); GLOM FILT RATE Estimated 93.8 mL/min (>60); POTASSIUM 3.5 mmol/L (3.5-5.1); PROTEIN TOTAL SERUM 7.8 g/dL (6.0-8.3)
[2017-03-15] MEDS ORDERED: ATORVASTATIN CA40 MG PO (15:55)
[2017-03-15] MEDS ORDERED: ASPIRIN EC81 M1 PO (15:55)
[2017-03-15] MEDS ORDERED: AMLODIPINE BESY10 MG PO (15:55)
[2017-03-15] MEDS ORDERED: AMITRIPTYLINE H25 MG PO (15:55)
[2017-03-15] MEDS ORDERED: CLONIDINE HCL0.1 MG PO (15:56)
[2017-03-15] MEDS ORDERED: LOPID600 MG PO (15:57)
[2017-03-15] MEDS ORDERED: FLUOXETINE HCL20 M1 PO (15:57)
[2017-03-15] MEDS ORDERED: ZESTRIL40 MG PO (15:58)
[2017-03-15] MEDS ORDERED: AMARYL PO (15:58)
[2017-03-15] MEDS ORDERED: METFORMIN PO (15:59)
[2017-03-15] MEDS ORDERED: METOPROLOL PO (16:00)
[2017-03-15] MEDS ORDERED: K-DUR20 ME1 PO (16:01)
[2017-03-15] MEDS ORDERED: [UNRECOGNIZED DRUG - REMARK] SUBQ (16:02)
[2017-03-15] MEDS ORDERED: COUMADIN5 MG PO (16:02)
[2017-03-15] MEDS ORDERED: LANTUS SOL100 UNIT/1 SUBQ (16:02)
== END 2017-03-04 19:35 | disposition home or self-care (01) ==
LOC: CED 16:31
DX: K85.90 Acute pancreatitis without necrosis or infection, unspecified (principal); E11.9 Type 2 diabetes mellitus without complications; I10 Essential (primary) hypertension; Z98.890 Other specified postprocedural states
CPT/HCPCS: 36415; 80048; 80076; 81003; 83690; 85025; 96374; 99284; J2270